=== PATIENT | female | born 1965 | race Caucasian/White ===

== ENCOUNTER 2018-03-23 17:18 | Emergency (ER) | payer OTHER ==
[~2018-03-23] VITALS: Ht 160 cm; Wt 65.8 kg
[2018-03-23] MEDS ORDERED: NEOMY/BACITRA/POLYMYXIN B OINT UD PACKET TP ONE (18:00)
[2018-03-23] MEDS ORDERED: TDAP DIPH,PERTUSS,TET VAC/PF 0.5 ML DISP.SYRIN IM ONE ×2 (18:00→18:09)
[2018-03-23] MEDS ORDERED: PIPERACILLIN SODIUM/TAZOBACTAM 4.5 G in IV DEXTROSE 5% 50 ML IV SCH (18:15)
[2018-03-23] MEDS ORDERED: KETOROLAC TROMETHAMINE 30 MG INJ IVP ONE (18:15)
[2018-03-23] MEDS ORDERED: PIPERACILLIN/TAZO 4.5 GM VIAL IV ONE (18:17)
[2018-03-23] MEDS ORDERED: KETOROLAC TROMETHAMINE 30 MG INJ ONE (18:17)
--- NOTE | 2018-03-23 18:53 | NUR ---
IV removed. Catheter intact and site benign. Pressure and 4x4 gauze applied to site. No bleeding noted.
--- NOTE | 2018-03-23 18:54 | NUR ---
Patient discharged to home in stable conditon with a friend. Written and verbal after care instructions given. Patient verbalizes understanding of instructions. Stressed follow up.
== END 2018-03-23 18:55 | disposition home or self-care (01) ==
LOC: ER 17:18
DX: S51.832A Puncture wound without foreign body of left forearm, initial encounter (principal); S51.852A Open bite of left forearm, initial encounter; Z23 Encounter for immunization; Z88.5 Allergy status to narcotic agent; W54.0XXA Bitten by dog, initial encounter; Y93.89 Activity, other specified; Y92.89 Other specified places as the place of occurrence of the external cause; Y99.8 Other external cause status
CPT/HCPCS: 29125; 90471; 90715; 96365; 96375; 99284; A4217; A4663; J1885; J2543; J3490